=== PATIENT | male | born 1970 | race Hispanic/Latino ===

== ENCOUNTER 2019-10-15 13:21 | Emergency (ER) | payer OTHER ==
[2019-10-15] MEDS ORDERED: HYDROCODONE/ACETAMINOPHEN 10/325 MG TAB ONE (13:36)
== END 2019-10-15 14:44 | disposition home or self-care (01) ==
LOC: EDH 13:21
DX: S80.02XA Contusion of left knee, initial encounter (principal); W17.89XA Other fall from one level to another, initial encounter; Y93.89 Activity, other specified; Y92.89 Other specified places as the place of occurrence of the external cause; Y99.8 Other external cause status
CPT/HCPCS: 73562

== ENCOUNTER → 2020-09-25 | Outpatient (CLI) | payer OTHER ==
[2020-09-25 13:25] LABS: BASOPHILS % (AUTO) 0.6 % (0.0-5.0); HEMATOCRIT 43.3 % (42-54); LYMPHOCYTES % (AUTO) 28.2 % (21.0-51.0); MEAN CORPUSCULAR HEMOGLOBIN 29.9 pg (27.0-33.0); MEAN CORPUSCULAR HGB CONC 33.5 g/dL (32.0-36.0); MEAN CORPUSCULAR VOLUME 89.3 fL (79-99); MONOCYTES % (AUTO) 7.2 % (3.0-13.0); NEUTROPHILS % (AUTO) 61.6 % (40.0-77.0); PLATELET COUNT (AUTO) 274 K/uL (130-400); RED BLOOD CELL COUNT(AUTO) 4.85 MIL/uL (4.50-6.20); WHITE BLOOD COUNT (AUTO) 5.4 K/uL (4.8-10.8)
[2020-09-25 13:38] LABS: HEMOGLOBIN A1C 6.2 % (4.0-6.0)
[2020-09-25 13:51] LABS: ALBUMIN 4.1 g/dL (3.5-5.0); BILIRUBIN,TOTAL 0.6 mg/dL (0.2-1.0); CREATININE 0.9 mg/dL (0.5-1.5); POTASSIUM 4.1 mmol/L (3.5-5.1); THYROID STIMULATING HORMONE 0.83 uIU/mL (0.36-3.74); TOTAL PROTEIN, SERUM 7.6 g/dL (6.0-8.3)
== END | disposition home or self-care (01) ==
LOC: LAB 12:33
PROVIDERS: ATTEND Family Medicine
DX: Z00.00 Encounter for general adult medical examination without abnormal findings (principal); N40.0 Benign prostatic hyperplasia without lower urinary tract symptoms
CPT/HCPCS: 36415; 80053; 80061; 82270; 82306; 83036; 84153; 84443; 85025

== ENCOUNTER → 2021-04-22 | Outpatient (CLI) | payer SELFPAY | END | disposition home or self-care (01) | LOC: OIH 10:12 | PROVIDERS: ATTEND Family Medicine | DX: Z13.6 Encounter for screening for cardiovascular disorders (principal) | CPT/HCPCS: 75571 ==

== ENCOUNTER 2021-07-13 20:55 | Emergency (ER) | payer OTHER, SELFPAY ==
[~2021-07-13] VITALS: Ht 172.7 cm; Wt 88.5 kg
[2021-07-13] MEDS ORDERED: MAG/ALUM/SIMETH 30 ML UDCUP PO ONE (21:30)
[2021-07-13] MEDS ORDERED: FAMOTIDINE 20MG VIAL IV ONE (21:30)
[2021-07-13 21:38] LABS: BASOPHILS % (AUTO) 0.9 % (0.0-5.0); EOSINOPHILS % (AUTO) 2.5 % (0.0-8.0); HEMATOCRIT 41.5 % (42-54); LYMPHOCYTES % (AUTO) 31.6 % (21.0-51.0); MEAN CORPUSCULAR HEMOGLOBIN 29.2 pg (27.0-33.0); MEAN CORPUSCULAR VOLUME 88.5 fL (79-99); MONOCYTES % (AUTO) 10.3 % (3.0-13.0); NEUTROPHILS % (AUTO) 54.3 % (40.0-77.0); PLATELET COUNT (AUTO) 280 K/uL (130-400); RED BLOOD CELL COUNT(AUTO) 4.69 MIL/uL (4.50-6.20); RED CELL DISTRIBUTION WIDTH 12.9 % (11.0-15.5); WHITE BLOOD COUNT (AUTO) 5.6 K/uL (4.8-10.8)
[2021-07-13 21:40] LABS: APPEARANCE,URINE Clear (CLEAR); BILIRUBIN,URINE Negative (NEGATIVE); COLOR,URINE Yellow (YELLOW); GLUCOSE, URINE (UA) 250 mg/dL (NEGATIVE); KETONES,URINE Negative (NEGATIVE); LEUKOCYTE ESTERASE ,URINE Negative (NEGATIVE); NITRATE,URINE Negative (NEGATIVE); OCCULT BLOOD,URINE Trace (NEGATIVE); PH,URINE 5.5 (5.0-8.0); PROTEIN,URINE Negative (NEGATIVE)
[2021-07-13 21:49] LABS: BACTERIA,URINE Rare /HPF (None Seen); SQUAMOUS EPITHELIAL CELL,UR Rare /HPF (0-2); WBC,URINE 0-1 /HPF (0-1)
[2021-07-13 21:52] LABS: ALBUMIN 3.8 g/dL (3.5-5.0); BILIRUBIN,TOTAL 0.2 mg/dL (0.2-1.0); CREATININE 0.9 mg/dL (0.5-1.5); POTASSIUM 3.4 mmol/L (3.5-5.1); TOTAL PROTEIN, SERUM 7.3 g/dL (6.0-8.3)
[2021-07-13] MEDS ORDERED: DICYCLOMINE HCL 10 MG/5 ML ML PO ONE (21:53)
[2021-07-13] MEDS ORDERED: LIDOCAINE HCL 2% VISCOUS 15 ML UDCUP ONE (21:53)
[2021-07-13 22:02] VITALS: BP 138/116
[2021-07-13] MEDS ORDERED: CIPR-278 PO (22:31)
[2021-07-13] MEDS ORDERED: DICY20TA2 PO (22:31)
[2021-07-13] MEDS ORDERED: METR500T PO (22:31)
[2021-07-13] MEDS ORDERED: FAMO20TA8 PO (22:31)
[2021-07-13 23:11] VITALS: BP 142/82
== END 2021-07-13 23:12 | disposition home or self-care (01) ==
LOC: EDH 20:55
DX: K52.9 Noninfective gastroenteritis and colitis, unspecified (principal)
CPT/HCPCS: 36415; 74176; 80053; 81001; 82150; 83690; 85025; 96374; J3490

== ENCOUNTER → 2022-10-22 | Outpatient (CLI) | payer OTHER ==
[~2022-10-22] MED LIST: CIPR-278 PO; DICY20TA2 PO; FAMO20TA8 PO; GADOTERATE MEGLUMINE 10 MMOL/20 ML VIAL IV ONE; METR500T PO
== END | disposition home or self-care (01) ==
LOC: RAH 11:03
PROVIDERS: ATTEND Family Medicine
DX: S46.012A Strain of muscle(s) and tendon(s) of the rotator cuff of left shoulder, initial encounter (principal); M65.812 Other synovitis and tenosynovitis, left shoulder; M19.012 Primary osteoarthritis, left shoulder; M25.512 Pain in left shoulder; X58.XXXA Exposure to other specified factors, initial encounter; Y93.89 Activity, other specified; Y92.89 Other specified places as the place of occurrence of the external cause; Y99.8 Other external cause status
CPT/HCPCS: 73223; A9575

== ENCOUNTER 2023-08-30 07:02 | Emergency (ER) | payer OTHER ==
[~2023-08-30] VITALS: Ht 172.7 cm; Wt 79.4 kg
[~2023-08-30 07:02] MED LIST changes: -GADOTERATE MEGLUMINE 10 MMOL/20 ML VIAL IV ONE
[2023-08-30] MEDS ORDERED: IBUPROFEN 600 MG TABLET PO ONE (08:00)
[2023-08-30] MEDS ORDERED: CYCLOBENZAPRINE HCL 10 MG TABLET PO ONE (08:00)
[2023-08-30] MEDS ORDERED: CYCL10TA16 PO (10:25)
[2023-08-30] MEDS ORDERED: NAPR-1192 PO (10:25)
[2023-08-30 10:39] VITALS: BP 133/69; PULSE 75; RESP 18; O2SAT 98
== END 2023-08-30 10:42 | disposition home or self-care (01) ==
LOC: EDH 07:02
DX: M62.830 Muscle spasm of back (principal); Z79.899 Other long term (current) drug therapy
CPT/HCPCS: 72040; 72125

== ENCOUNTER 2023-11-21 15:19 | Emergency (ER) | payer OTHER ==
[~2023-11-21] VITALS: Ht 170.2 cm; Wt 81.6 kg
[~2023-11-21 15:19] MED LIST changes: +CYCL10TA16 PO; +NAPR-1192 PO
[2023-11-21 15:46] LABS: BASOPHILS # (AUTO) 0.03 K/uL (0.00-0.20); BASOPHILS % (AUTO) 0.5 % (0.0-5.0); EOSINOPHILS # (AUTO) 0.15 K/uL (0.00-0.70); EOSINOPHILS % (AUTO) 2.6 % (0.0-8.0); HEMATOCRIT 41.3 % (42-54); IMMATURE GRANULOCYTE ABSOLUTE 0.02 K/uL (0-1); LYMPHOCYTES # (AUTO) 1.9 K/uL (1.0-4.8); LYMPHOCYTES % (AUTO) 32.1 % (21.0-51.0); MEAN CORPUSCULAR HEMOGLOBIN 29.5 pg (27.0-33.0); MEAN CORPUSCULAR HGB CONC 34.1 g/dL (32.0-36.0); MEAN CORPUSCULAR VOLUME 86.4 fL (79-99); MONOCYTES # (AUTO) 0.5 K/uL (0.1-1.0); MONOCYTES % (AUTO) 8.2 % (3.0-13.0); NEUTROPHILS # (AUTO) 3.3 K/uL (1.8-7.7); NEUTROPHILS % (AUTO) 56.3 % (40.0-77.0); PLATELET COUNT (AUTO) 271 K/uL (130-400); RED BLOOD CELL COUNT(AUTO) 4.78 MIL/uL (4.50-6.20); WHITE BLOOD COUNT (AUTO) 5.8 K/uL (4.8-10.8)
[2023-11-21 15:54] LABS: CREATININE 0.8 mg/dL (0.5-1.5); POTASSIUM 3.6 mmol/L (3.5-5.1)
[2023-11-21 15:57] LABS: INR 0.97 (0.85-1.15); PROTHROMBIN TIME 11.3 SEC (9.6-11.6)
[2023-11-21 15:59] LABS: ALBUMIN 3.8 g/dL (3.5-5.0); BILIRUBIN,TOTAL 0.2 mg/dL (0.2-1.0); TOTAL PROTEIN, SERUM 7.4 g/dL (6.0-8.3)
[2023-11-21 16:24] LABS: B-TYPE NATRIURETIC PEPTIDE 12 pg/mL (0-100)
[2023-11-21 17:28] VITALS: BP 112/73; PULSE 78; RESP 18; O2SAT 97
[2023-11-21] MEDS ORDERED: KETOROLAC 60 MG VIAL (30MG/ML) IM ONE (17:30)
[2023-11-21] MEDS ORDERED: ORPHENADRINE CITRATE 30 MG/ML ML IM ONE (17:30)
[2023-11-21] MEDS ORDERED: NAPR-1180 PO (17:38)
[2023-11-21] MEDS ORDERED: CYCL-309 PO (17:38)
== END 2023-11-21 17:57 | disposition home or self-care (01) ==
LOC: EDH 15:19
DX: M79.621 Pain in right upper arm (principal); M25.521 Pain in right elbow; G89.29 Other chronic pain; M54.9 Dorsalgia, unspecified; Z79.899 Other long term (current) drug therapy; Z98.890 Other specified postprocedural states
CPT/HCPCS: 99285; 71045; 84484; 80053; 83880; 85025; 85610; 36415; 96372 ×2; 93005; J1885; J2360

== ENCOUNTER → 2024-05-22 | Outpatient (CLI) | payer OTHER ==
[~2024-05-22] MED LIST changes: +CYCL-309 PO; +NAPR-1180 PO
== END | disposition home or self-care (01) ==
LOC: LAB 11:55
PROVIDERS: ATTEND Hospitalist
DX: Z11.52 Encounter for screening for COVID-19 (principal)
CPT/HCPCS: 87426

== ENCOUNTER 2024-07-25 06:16 | Emergency (ER) | payer OTHER ==
[~2024-07-25] VITALS: Ht 170.2 cm; Wt 83.0 kg
[2024-07-25 06:45] VITALS: BP 118/75; PULSE 96; RESP 20; TEMP 98.5; O2SAT 96
[2024-07-25 06:51] LABS: BASOPHILS # (AUTO) 0.03 K/uL (0.00-0.20); BASOPHILS % (AUTO) 0.3 % (0.0-5.0); EOSINOPHILS # (AUTO) 0.03 K/uL (0.00-0.70); EOSINOPHILS % (AUTO) 0.3 % (0.0-8.0); HEMATOCRIT 45.9 % (42-54); IMMATURE GRANULOCYTE ABSOLUTE 0.05 K/uL (0-1); LYMPHOCYTES # (AUTO) 0.3 K/uL (1.0-4.8); LYMPHOCYTES % (AUTO) 2.4 % (21.0-51.0); MEAN CORPUSCULAR HEMOGLOBIN 29.2 pg (27.0-33.0); MONOCYTES # (AUTO) 0.4 K/uL (0.1-1.0); NEUTROPHILS # (AUTO) 9.8 K/uL (1.8-7.7); NEUTROPHILS % (AUTO) 92.5 % (40.0-77.0); PLATELET COUNT (AUTO) 304 K/uL (130-400); RED BLOOD CELL COUNT(AUTO) 5.34 MIL/uL (4.50-6.20); RED CELL DISTRIBUTION WIDTH 12.9 % (11.0-15.5); WHITE BLOOD COUNT (AUTO) 10.6 K/uL (4.8-10.8)
[2024-07-25] MEDS: 0.9%NACL 1000ML 1,000 ML IV ONE (06:59)
[2024-07-25] MEDS: PANTOPrazole 40 MG/VIAL IVP ONE (06:59)
[2024-07-25 07:03] LABS: ALBUMIN 4.2 g/dL (3.5-5.0); BILIRUBIN,TOTAL 0.7 mg/dL (0.2-1.0); POTASSIUM 3.8 mmol/L (3.5-5.1); TOTAL PROTEIN, SERUM 8.5 g/dL (6.0-8.3)
[2024-07-25] MEDS ORDERED: ONDA-243 PO (08:00)
[2024-07-25] MEDS ORDERED: FAMO10TA39 PO (08:00)
== END 2024-07-25 09:22 | disposition home or self-care (01) ==
LOC: EDH 06:16
DX: R10.9 Unspecified abdominal pain (principal); Z79.899 Other long term (current) drug therapy
CPT/HCPCS: 99283; 96374; 96361; 80053; 83690; 85025; 36415; J7030; J2470

== ENCOUNTER → 2025-04-18 | Outpatient (CLI) | payer OTHER ==
[~2025-04-18] MED LIST changes: +FAMO10TA39 PO; +ONDA-243 PO
--- NOTE | 2025-04-18 14:39 | HMCIMG ---
US SOFT TISSUE LOWER BACK REASON: sebaceous cyst. COMPARISON: None TECHNIQUE: Bilateral back ultrasound study was performed. FINDINGS: Over the region of interest in the left mid upper back, this complex structure measuring 9 x 5 x 8 mm which was drained 2 weeks ago per patient. There appears to be right mid and lower back lipoma measuring 11 x 3.4 x 6.5 cm. IMPRESSION: Findings described above.
== END | disposition home or self-care (01) ==
LOC: RAH 13:55
PROVIDERS: ATTEND Family Medicine
DX: L72.3 Sebaceous cyst (principal)
CPT/HCPCS: 76705

== ENCOUNTER 2025-06-11 06:27 | Day surgery (SDC) | payer OTHER ==
[2025-06-08 11:03] LABS: IMMATURE GRANULOCYTE ABSOLUTE 0.01 K/uL (0-1); NUCLEATED RED BLOOD CELLS 0.0 % (0.0-0.19); PLATELET COUNT (AUTO) 270 K/uL (130-400); RED BLOOD CELL COUNT(AUTO) 4.86 MIL/uL (4.50-6.20); RED CELL DISTRIBUTION WIDTH 13.0 % (11.0-15.5); WHITE BLOOD COUNT (AUTO) 5.1 K/uL (4.8-10.8)
[2025-06-08 11:09] LABS: CREATININE 0.9 mg/dL (0.5-1.3); GLOMERULAR FILTR. RATE CALC 100.0 mL/min (>90); GLUCOSE,RANDOM 128.0 mg/dL (70-105); SODIUM SERUM 138.0 mmol/L (136-145); UREA NITROGEN, BLOOD 15.0 mg/dL (7-18)
[2025-06-08 11:33] LABS: INR 1.05 (0.85-1.15)
[2025-06-11] VITALS (13 sets, daily range): BP systolic 109–158; BP diastolic 64–83; PULSE 57–73; RESP 13–18; TEMP 97.4–97.9
[~2025-06-11] VITALS: Ht 170.2 cm; Wt 80.9 kg
[~2025-06-11 06:27] MED LIST changes: -CIPR-278 PO; -CYCL-309 PO; -CYCL10TA16 PO; -DICY20TA2 PO; -FAMO10TA39 PO; -FAMO20TA8 PO; +LACTATED RINGERS 1000ML 1,000 ML IV ONE; -METR500T PO; -NAPR-1180 PO; -NAPR-1192 PO; -ONDA-243 PO
[2025-06-11] MEDS ORDERED: MIDAZOLAM HCL 1 MG/ML 2ML VIAL ONE (07:39)
[2025-06-11] MEDS ORDERED: GLYCOPYRROLATE 0.2 MG/ML 5 ML VIAL ONE (09:43)
[2025-06-11] MEDS ORDERED: NEOSTIGMINE METHYLSULFATE 1MG/ML IV ONE (09:43)
--- NOTE | 2025-06-11 09:53 | OP ---
Operative Note: DATE OF PROCEDURE: 06/11/25 SURGEON: YUSUF SOLIS MD PYROMETER MECHANIC: [] ANESTHESIA: [] General ANESTHESIOLOGIST/LOGISTICS INTERN: [] PREOPERATIVE DIAGNOSIS: [] Lipoma of the back POSTOPERATIVE DIAGNOSIS: [] Same SYNOPSIS: [] PROCEDURE: [] Excision lipoma of the back ESTIMATED BLOOD LOSS: [] None INDICATIONS: [] DESCRIPTION OF PROCEDURE: [] With the patient prepped in the usual fashion and with the patient prone for that a longitudinal incision along this large lipoma using cautery and blunt dissection I was able to excise a large lipoma that was going all the way down to the fascia of muscles of the back. After excising and procure cauterization and a hemostasis I aided with Chely powder. After excising a small amount of skin in order to have a better closure. I closed the wound in layers using 2-0 Vicryl the 1st deep subcutaneous 3-0 Vicryl the more superficial and the skin was closed with nylon. We placed 20 cc of local anesthesia. With did a pressure dressing and the patient will be going to recovery. The specimen was about 7 in long and 5 in wide. YUSUF SOLIS MD Jun 11, 2025 09:53
--- NOTE | 2025-06-11 11:00 | NUR ---
POST RECOVERY BINDER IN PLACE. GAUZE DRESSING TO BACK. SOFT TO TOUCH, NO DRAINAGE OR ACTIVE BLEEDING NOTED. AT BEDSIDE.
== END 2025-06-11 11:34 | disposition home or self-care (01) ==
LOC: DAH 06:27
PROVIDERS: ATTEND Surgery
DX: D17.1 Benign lipomatous neoplasm of skin and subcutaneous tissue of trunk (principal); Z79.01 Long term (current) use of anticoagulants; Z79.899 Other long term (current) drug therapy
CPT/HCPCS: 80048; 85025; 85610; 85730; 36415; 21933; 88304; A6260; A4663; J7120; J3010 ×2; J0665 ×2; J3490 ×2; J2250; J2704 ×2; J2710; J0690 ×2; A4930; A4215; A4223; A4222; A4221; A4450